=== PATIENT | female | born 1975 | race Caucasian/White ===

== ENCOUNTER 2017-08-01 22:13 | Emergency (ER) | payer OTHER ==
[~2017-08-01] VITALS: Ht 157.5 cm; Wt 52.2 kg
--- NOTE | ~2017-08-01 | EKG ---
[address] [place] [address] ELECTROCARDIOGRAM REPORT Name: BULL PINEDA Room #: DEP Devika#: [id number] Admission: 08/01/17 Attend Phys: Discharge: 08/02/17 Date of : 75 Report #: [id number] THIS REPORT FOR: //name// [facility] ED Test Date: 2017-08-01 Test Time: 22:50:51 Pat Name: BULL PINEDA Department: Room: Gender: Plant Reliability Engineer: deysi : 1975 Requested By: Tessie Medel Order Number: [id number] MD: Agus Ragsdale Measurements Intervals [place] Rate: 101 P: 56 ND: 162 QRS: 47 QRSD: 91 T: 46 QT: 345 QTc: 448 Interpretive Statements Sinus tachycardia Otherwise normal tracing No previous ECG available for comparison Electronically Signed On 08-02-2017 8:37:16 CDT by Agus Ragsdale [email or web address] <ELECTRONICALLY SIGNED> By: Agus Ragsdale MD, [facility] 08/02/17 0837 2250 2250 Agus Ragsdale MD, FACC /EPI
[2017-08-01] MEDS ORDERED: NORCO 10-325 T1 EACH PO (23:20)
[2017-08-01] MEDS ORDERED: LIORESAL 10 MG10 MG PO (23:20)
[2017-08-01] MEDS ORDERED: PROZAC10 MG PO (23:20)
[2017-08-01] MEDS ORDERED: EPIPEN0.3 MG/0.1 IM (23:21)
[2017-08-01 23:52] LABS: ABSOLUTE NEUTROPHILS 10.6 thou/uL (1.4-8.2); BASOPHILS 0.7 % (0.0-2.0); EOSINOPHILS 0.8 % (0.0-3.0); HEMATOCRIT 28.6 % (37.0-47.0); HEMOGLOBIN 9.7 gm/dL (12.0-15.0); MCH 28.4 pg (26.0-34.0); MCHC 34.1 g/dL (28.0-37.0); MCV 83.2 fL (80.0-100.0); MONOCYTES 4.1 % (1.0-8.0); PLATELET COUNT 291 thou/uL (150-400); POLYS 82.4 % (36.0-66.0); RBC 3.43 mil/uL (4.20-5.00); RDW 14.8 % (10.5-14.5); WBC 12.9 thou/uL (4.0-11.0)
[2017-08-02 00:01] LABS: ANION GAP 9 mmol/L (7-16); BUN 15 mg/dL (7-18); CALCIUM 8.7 mg/dL (8.5-10.1); CHLORIDE 104 mmol/L (98-107); CO2 26 mmol/L (21-32); CREATININE 0.6 mg/dL (0.6-1.0); GLUCOSE 112 mg/dL (74-106); POTASSIUM 3.4 mmol/L (3.5-5.1); SODIUM 139 mmol/L (136-145)
[2017-08-02 00:08] LABS: TROPONIN-I < 0.04 ng/mL (<0.06)
[2017-08-02] MEDS ORDERED: ZPAK PO (00:46)
[2017-08-02] MEDS ORDERED: TESSALON PERLE100 MG PO (00:46)
[2017-08-02] MEDS ORDERED: GUAIFEN-CODEINE10 ML PO (00:46)
[2017-08-02 01:04] VITALS: BP 114/63
== END 2017-08-02 01:04 | disposition home or self-care (01) ==
LOC: ER 22:13
PROVIDERS: Emergency Medicine
DX: J18.9 Pneumonia, unspecified organism (principal); J02.9 Acute pharyngitis, unspecified; F17.210 Nicotine dependence, cigarettes, uncomplicated; Z88.6 Allergy status to analgesic agent; Z91.041 Radiographic dye allergy status

== ENCOUNTER 2018-09-19 22:56 | Emergency (ER) | payer OTHER ==
[~2018-09-19] VITALS: Ht 157.5 cm; Wt 52.2 kg
[~2018-09-19 22:56] MED LIST: EPIPEN0.3 MG/0.1 IM; GUAIFEN-CODEINE10 ML PO; LIORESAL 10 MG10 MG PO; NORCO 10-325 T1 EACH PO; PROZAC10 MG PO; TESSALON PERLE100 MG PO; ZPAK PO
[2018-09-19] MEDS ORDERED: PROMS25 WY RECTAL (23:56)
[2018-09-19] MEDS ORDERED: NORFLEX100 MG PO (23:56)
[2018-09-20] MEDS ORDERED: ACYCLOVIR 800800 MG PO (00:08)
[2018-09-20 00:10] VITALS: BP 125/76
== END 2018-09-20 00:13 ==
LOC: ER 22:56
DX: G43.909 Migraine, unspecified, not intractable, without status migrainosus (principal); B02.9 Zoster without complications; M54.5 Low back pain; M79.18 Myalgia, other site; F32.9 Major depressive disorder, single episode, unspecified; N30.10 Interstitial cystitis (chronic) without hematuria; F17.210 Nicotine dependence, cigarettes, uncomplicated; Z91.041 Radiographic dye allergy status; Z88.6 Allergy status to analgesic agent

== ENCOUNTER 2018-12-24 20:42 | Emergency (ER) | payer OTHER ==
[~2018-12-24] VITALS: Ht 157.5 cm; Wt 54.4 kg
[~2018-12-24 20:42] MED LIST changes: +ACYCLOVIR 800800 MG PO; +NORFLEX100 MG PO; +PROMS25 WY RECTAL
[2018-12-24 21:34] LABS: CALCIUM 9.4 mg/dL (8.5-10.1); CREATININE 0.8 mg/dL (0.6-1.0)
[2018-12-24 21:56] LABS: ABSOLUTE NEUTROPHILS 5.8 thou/uL (1.4-8.2); BASOPHILS 1.3 % (0.0-2.0); EOSINOPHILS 3.6 % (0.0-3.0); HEMATOCRIT 30.4 % (37.0-47.0); HEMOGLOBIN 10.1 gm/dL (12.0-15.0); LYMPHOCYTES 35.1 % (24.0-44.0); MCH 27.8 pg (26.0-34.0); MCHC 33.3 g/dL (28.0-37.0); MCV 83.5 fL (80.0-100.0); MONOCYTES 4.9 % (1.0-8.0); PLATELET COUNT 335 thou/uL (150-400); POLYS 55.1 % (36.0-66.0); RBC 3.64 mil/uL (4.20-5.00); RDW 14.4 % (10.5-14.5); WBC 10.6 thou/uL (4.0-11.0)
[2018-12-24] MEDS ORDERED: BUTALB-APAP-CA1 EACH PO (22:11)
[2018-12-24] MEDS ORDERED: PHENERGAN 25 MG25 M1 PO (22:11)
[2018-12-24 22:31] VITALS: BP 96/55
== END 2018-12-24 22:32 | disposition home or self-care (01) ==
LOC: ER 20:42
PROVIDERS: Nurse Practitioner Family
DX: G43.909 Migraine, unspecified, not intractable, without status migrainosus (principal); M25.511 Pain in right shoulder; R42 Dizziness and giddiness; F32.9 Major depressive disorder, single episode, unspecified; F17.210 Nicotine dependence, cigarettes, uncomplicated; Z88.6 Allergy status to analgesic agent; Z91.041 Radiographic dye allergy status; W18.39XA Other fall on same level, initial encounter; Y92.89 Other specified places as the place of occurrence of the external cause; Y93.89 Activity, other specified; Y99.8 Other external cause status

== ENCOUNTER 2019-06-25 14:29 | Emergency (ER) | payer OTHER ==
[~2019-06-25] VITALS: Ht 154.9 cm; Wt 56.7 kg
[~2019-06-25 14:29] MED LIST changes: +BUTALB-APAP-CA1 EACH PO; +PHENERGAN 25 MG25 M1 PO; -PROZAC10 MG PO; +PROZAC20 MG PO
[2019-06-25 15:34] LABS: ABSOLUTE NEUTROPHILS 2.9 thou/uL (1.4-8.2); BASOPHILS 1.5 % (0.0-2.0); EOSINOPHILS 5.6 % (0.0-3.0); HEMATOCRIT 31.8 % (37.0-47.0); HEMOGLOBIN 10.5 gm/dL (12.0-15.0); LYMPHOCYTES 50.5 % (24.0-44.0); MCH 27.3 pg (26.0-34.0); MCHC 33.1 g/dL (28.0-37.0); MCV 82.4 fL (80.0-100.0); MONOCYTES 6.3 % (1.0-8.0); PLATELET COUNT 402 thou/uL (150-400); POLYS 36.1 % (36.0-66.0); RBC 3.86 mil/uL (4.20-5.00); RDW 14.8 % (10.5-14.5)
[2019-06-25] MEDS ORDERED: SLEEP AID50 MG PO (15:49)
[2019-06-25] MEDS ORDERED: AMITRIPTYLINE100 MG PO (15:51)
[2019-06-25] MEDS ORDERED: ACYCLOVIR 400400 MG PO (15:52)
[2019-06-25 15:53] LABS: CALCIUM 8.5 mg/dL (8.5-10.1); CREATININE 0.8 mg/dL (0.6-1.0); POTASSIUM 3.8 mmol/L (3.5-5.1)
[2019-06-25] MEDS ORDERED: BUTORPHANO10 MG/1 ML NASAL (15:54)
[2019-06-25 15:59] LABS: ALBUMIN 3.7 g/dL (3.4-5.0); TOTAL BILIRUBIN 0.1 mg/dL (<0.1-1.0); TOTAL PROTEIN 7.1 g/dL (6.4-8.2)
[2019-06-25 16:54] LABS: URINE BILIRUBIN NEGATIVE (Negative); URINE BLOOD 1+ (Negative); URINE CLARITY CLEAR; URINE COLOR YELLOW; URINE GLUCOSE-RANDOM* NEGATIVE (Negative); URINE KETONES NEGATIVE (Negative); URINE LEUKOCYTES-REFLEX NEGATIVE (Negative); URINE NITRITE-REFLEX NEGATIVE (Negative); URINE PROTEIN (DIPSTICK) NEGATIVE (Negative); URINE SPECIFIC GRAVITY >= 1.030 (1.005-1.035); URINE UROBILINOGEN 0.2 E.U./dl (0.2-1.0)
[2019-06-25] MEDS ORDERED: RELISTOR150 MG PO (17:10)
[2019-06-25 17:49] VITALS: BP 108/86
== END 2019-06-25 17:52 | disposition home or self-care (01) ==
LOC: ER 14:29
PROVIDERS: Physician Assistant
DX: N81.10 Cystocele, unspecified (principal); K59.00 Constipation, unspecified; L50.0 Allergic urticaria; T40.2X5A Adverse effect of other opioids, initial encounter; F17.210 Nicotine dependence, cigarettes, uncomplicated; Z98.890 Other specified postprocedural states; Z79.899 Other long term (current) drug therapy; Z91.041 Radiographic dye allergy status; Z88.6 Allergy status to analgesic agent; Z90.49 Acquired absence of other specified parts of digestive tract; Y92.89 Other specified places as the place of occurrence of the external cause

== ENCOUNTER 2020-10-06 13:39 | Emergency (ER) | payer OTHER ==
[~2020-10-06] VITALS: Ht 154.9 cm; Wt 57.1 kg
[~2020-10-06 13:39] MED LIST changes: +ACYCLOVIR 400400 MG PO; +AMITRIPTYLINE100 MG PO; +BUTORPHANO10 MG/1 ML NASAL; +RELISTOR150 MG PO; +SLEEP AID50 MG PO
[2020-10-06] MEDS ORDERED: AUGMENTIN 875-1 EACH PO (15:06)
[2020-10-06 15:24] VITALS: BP 128/90
[2020-10-07] MEDS ORDERED: HYDROCODON-ACE1 EAC7 PO (15:22)
== END 2020-10-06 15:25 | disposition home or self-care (01) ==
LOC: ER 13:39
DX: S60.412A Abrasion of right middle finger, initial encounter (principal); S61.254A Open bite of right ring finger without damage to nail, initial encounter; S61.256A Open bite of right little finger without damage to nail, initial encounter; F32.9 Major depressive disorder, single episode, unspecified; F17.210 Nicotine dependence, cigarettes, uncomplicated; Z79.899 Other long term (current) drug therapy; Z79.891 Long term (current) use of opiate analgesic; Z91.041 Radiographic dye allergy status; Z88.9 Allergy status to unspecified drugs, medicaments and biological substances; W54.0XXA Bitten by dog, initial encounter; Y93.89 Activity, other specified; Y92.098 Other place in other non-institutional residence as the place of occurrence of the external cause; Y99.8 Other external cause status

== ENCOUNTER 2020-10-07 13:02 | Emergency (ER) | payer OTHER ==
[~2020-10-07] VITALS: Ht 154.9 cm; Wt 56.7 kg
[~2020-10-07 13:02] MED LIST changes: +AUGMENTIN 875-1 EACH PO
[2020-10-07 13:11] VITALS: BP 113/64
[2020-10-07] MEDS ORDERED: HYDROCODON-ACE1 EAC7 PO (15:22)
== END 2020-10-07 15:39 | disposition home or self-care (01) ==
LOC: ER 13:02
DX: S61.252A Open bite of right middle finger without damage to nail, initial encounter (principal); M79.641 Pain in right hand; F32.9 Major depressive disorder, single episode, unspecified; F17.210 Nicotine dependence, cigarettes, uncomplicated; Z79.2 Long term (current) use of antibiotics; Z79.899 Other long term (current) drug therapy; Z88.6 Allergy status to analgesic agent; W54.0XXA Bitten by dog, initial encounter; Y93.89 Activity, other specified; Y92.89 Other specified places as the place of occurrence of the external cause; Y99.8 Other external cause status

== ENCOUNTER 2020-11-05 17:08 | Emergency (ER) | payer OTHER ==
[~2020-11-05] VITALS: Ht 157.5 cm; Wt 57.6 kg
[~2020-11-05 17:08] MED LIST changes: +HYDROCODON-ACE1 EAC7 PO
[2020-11-05 18:54] VITALS: BP 120/81
== END 2020-11-05 18:56 | disposition home or self-care (01) ==
LOC: ER 17:08
DX: U07.1 COVID-19 (principal); J45.909 Unspecified asthma, uncomplicated; F32.9 Major depressive disorder, single episode, unspecified; F17.210 Nicotine dependence, cigarettes, uncomplicated; Z79.891 Long term (current) use of opiate analgesic; Z79.899 Other long term (current) drug therapy; Z88.8 Allergy status to other drugs, medicaments and biological substances; Z88.3 Allergy status to other anti-infective agents; Z91.041 Radiographic dye allergy status